=== PATIENT | male | born 1965 | race Caucasian/White ===

== ENCOUNTER 2017-04-13 15:41 | Inpatient (IN) ==
[2017-04-13] MEDS ORDERED: Vancomycin 1,000 MG in D5% in Water 250 ML IVPB ONE ×2 (16:05→20:00)
--- NOTE | 2017-04-13 16:08 | Emergency Department Note ---
Disposition Clinical Impression: Facial cellulitis Disposition: Admitted As Inpatient Condition: Good Time of Disposition: 17:23 Skin/Abscess/FB HPI Chief complaint: ED Skin/Abscess/Foreign Body Stated complaint: Cellulitis to face not improving Time Seen by Provider: 04/13/17 16:00 Source: patient Mode of arrival: ambulatory Limitations: no limitations Nursing Notes Reviewed: Yes Vital Signs Reviewed: Yes HPI Narrative: 51-year-old white male with redness to his face for 5 days. He was seen here 2 days ago and treated for cellulitis with clindamycin and Keflex. He was put on prednisone as well. There was some concern as to whether was a dermatitis versus a facial cellulitis. It is not improving. He felt lightheaded and dizzy this morning. He had a fever when he was here 2 days ago, he states had some low-grade fever since then, not documented. Pt Subjective Complaint: rash Onset (ago): day(s) (5) Location: face Severity: moderate Quality: burning Consistency: constant Improves with: none Worsens with: none Context: other (Seen in the ED 2 days ago for the same) Associated symptoms: Reports: fever, chills Treatments prior to arrival: other (Cephalexin and clindamycin) Home Medications Medication Instructions Recorded Confirmed FLUoxetine HCl [Prozac] 20 mg PO DAILY 05/31/16 04/13/17 Allopurinol [Zyloprim 100 MG] 100 mg PO DAILY 06/01/16 04/13/17 Buprenorphine [Butrans] 1 each TD QWEEK 06/01/16 04/13/17 Dextroamphetamine/Amphetamine 20 mg PO DAILY 06/01/16 04/13/17 [Adderall 20 mg Tablet] Gabapentin [Gralise] 1,200 mg PO TID 06/01/16 04/13/17 Lisinopril [Zestril] 10 mg PO DAILY 06/01/16 04/13/17 Loratadine [Claritin] 10 mg PO DAILY 06/01/16 04/13/17 Methocarbamol [Robaxin] 750 mg PO Q8HR PRN 06/01/16 04/13/17 Oxycodone HCl [Oxycontin] 10 mg PO AD PRN 04/13/17 04/13/17 Previous Rx's Medication Instructions Recorded FLUoxetine HCl [Prozac] 40 mg PO QAM #30 capsule 06/03/16 TraZODone 50 mg PO HS PRN #30 tablet 06/03/16 Clindamycin [Cleocin] 150 mg PO Q6HR #40 capsule 04/11/17 HydrOXYzine Pamoate [Vistaril] 50 mg PO Q4-6H PRN #20 capsule 04/11/17 cephALEXin [Keflex] 1,000 mg PO BID #40 capsule 04/11/17 predniSONE [PredniSONE] 40 mg PO DAILY #10 tablet 04/11/17 Allergies Allergy/AdvReac Type Severity Reaction Status Date / Time Cyclobenzaprine AdvReac See Verified 11/15/16 11:51 [From Flexeril] Comments All systems ED: reviewed and negative except as stated. Constitutional: Reports: fever, chills Cardiovascular: Denies: chest pain Respiratory: Denies: cough, dyspnea Gastrointestinal: Denies: abdominal pain, nausea, vomiting Integumentary: Reports: as per HPI Past Medical History - Past Medical History Medical history: Reports: arthritis, hypertension, other Surgical history: Reports: orthopedic, other (Right shoulder, spinal fusion cervical), other (Gastric bypass) Psychiatric history: Reports: anxiety, ADHD, depression - Social History Smoking Status: Former smoker Smokeless Tobacco Status: No Alcohol use: Reports: none Drug use: Reports: none Physical Exam - General Limitations: no limitations General appearance: alert, in no apparent distress - Head Head exam: atraumatic, normocephalic - Eye Eye exam: Present: PERRL, EOMI, scleral icterus, conjunctival injection - ENT ENT exam: normal oropharynx, mucous membranes dry - Neck Neck exam: Present: normal inspection, full ROM, trachea midline. Absent: lymphadenopathy - Respiratory Respiratory exam: Present: normal lung sounds bilaterally. Absent: respiratory distress, wheezes - Cardiovascular Cardiovascular exam: Present: regular rate, normal rhythm, normal heart sounds - Abdominal Exam Abdominal exam: Present: soft, Non-Tender, normal bowel sounds. Absent: organomegaly, mass - Neurological Exam Neurological exam: Present: alert, oriented X3, normal gait. Absent: motor sensory deficit - Psychiatric Psychiatric exam: Present: normal affect, normal mood - Skin Skin exam: Present: warm, dry, intact, erythema (Erythema of both cheeks extending into the supraorbital regions and into the lower one third of the forehead, well-demarcated especially in the supraorbital regions. Some minimal scaling or dry skin.) Course - Reevaluation(s) Reevaluation #1: Discussed with Dr. Mackenzie. Accepted for observation admission. Time: 17:22 Vital Signs Temperature 98.0 F 04/13/17 15:46 Pulse Rate 65 04/13/17 15:46 Respiratory Rate 18 04/13/17 15:46 Blood Pressure 116/71 04/13/17 15:46 O2 Sat by Pulse Oximetry 100 04/13/17 15:46 Temperature 98.0 F 04/13/17 15:47 Pulse Rate 65 04/13/17 15:47 Respiratory Rate 18 04/13/17 15:47 Blood Pressure 116/71 04/13/17 15:47 O2 Sat by Pulse Oximetry 100 04/13/17 15:47 Oxygen Delivery Oxygen Delivery Room Air Skin/Abscess/Foreign Body - Differential Diagnosis Likely: viral exanthem, urticaria, allergic reaction to drug, cellulitis, eczema , insect bites, impetigo, contact dermatitis - Lab Data Result diagrams: 04/13/17 16:13 04/13/17 16:13 Lab Results 04/13/17 04/13/17 04/13/17 Range/Units 16:13 16:13 16:13 WBC 17.9 H (4.3-11.1) K/mcL RBC 4.33 (4.19-5.50) M/mcL Hgb 13.0 (12.9-16.9) g/dL Hct 36.7 L (37.5-50.1) % MCV 84.8 (83.0-100.0) fL MCH 30.0 (28.0-33.3) pg MCHC 35.4 (31.6-35.5) g/dL RDW 11.9 (11.5-14.5) % Plt Count 300 (140-400) K/mcL MPV 10.5 (9.4-12.4) fL Immature Gran % 0.8 (0-4) % Seg Neutrophils % 92.6 % Lymphocytes % 2.2 % Monocytes % 4.1 % Eosinophils % 0.1 % Basophils % 0.2 % Neutrophils # 16.6 H (1.6-8.9) K/mcL Lymphocytes # 0.4 L (0.6-4.6) K/mcL Monocytes # 0.7 (0.0-1.3) K/mcL Eosinophils # 0.0 (0.0-0.6) K/mcL Basophils # 0.0 (0.0-0.2) K/mcL ESR 46 H (0-15) mm/hr Sodium 130 L (136-145) mEq/L Potassium 4.1 (3.5-4.5) mEq/L Chloride 95 L (98-109) mEq/L Carbon Dioxide 21 (19-29) mEq/L BUN 19 (8-26) mg/dL Creatinine 0.92 (0.72-1.25) mg/dL Est GFR ( Amer) > 60 (> 60) Est GFR (Non-Af Amer) > 60 (> 60) BUN/Creatinine Ratio 21 (6-26) Glucose 181 H (70-99) mg/dL Calculated Osmolality 277 L (280-300) Calcium 9.4 (8.6-10.8) mg/dL Total Bilirubin 0.4 (0.2-1.2) mg/dL AST 15 (5-34) Units/L ALT 14 (0-55) Units/L Alkaline Phosphatase 70 (38-126) Units/L Serum Total Protein 7.6 (6.0-8.3) g/dL Albumin 3.5 (3.5-5.0) g/dL Globulin 4.1 H (2.4-3.5) g/dL Albumin/Globulin Ratio 0.9 L (1.1-2.2)
[2017-04-13 16:19] LABS: Basophils % 0.2 %; Eosinophils % 0.1 %; Hematocrit 36.7 % (37.5-50.1); Immature Granulocytes % 0.8 % (0-4); Lymphocytes # 0.4 K/mcL (0.6-4.6); Lymphocytes % 2.2 %; Mean Corpuscular HGB Conc 35.4 g/dL (31.6-35.5); Mean Corpuscular Volume 84.8 fL (83.0-100.0); Mean Platelet Volume 10.5 fL (9.4-12.4); Monocytes # 0.7 K/mcL (0.0-1.3); Monocytes % 4.1 %; Neutrophils # 16.6 K/mcL (1.6-8.9); Platelet Count 300 K/mcL (140-400); Red Blood Count 4.33 M/mcL (4.19-5.50); Red Cell Distribution Width 11.9 % (11.5-14.5); Segmented Neutrophils % 92.6 %
[2017-04-13] MEDS ORDERED: *HR* OxyCODONE/APAP 5/325 TABLET PO ONE (16:28)
[2017-04-13 16:36] LABS: Alanine Aminotransferase 14 Units/L (0-55); Albumin 3.5 g/dL (3.5-5.0); Albumin/Globulin Ratio 0.9 (1.1-2.2); Alkaline Phosphatase 70 Units/L (38-126); Aspartate Amino Transferase 15 Units/L (5-34); BUN/Creatinine Ratio 21 (6-26); Bilirubin,Total 0.4 mg/dL (0.2-1.2); Blood Urea Nitrogen 19 mg/dL (8-26); Calcium 9.4 mg/dL (8.6-10.8); Carbon Dioxide 21 mEq/L (19-29); Chloride 95 mEq/L (98-109); Globulin 4.1 g/dL (2.4-3.5); Glucose 181 mg/dL (70-99); Osmolality,Calculated 277 (280-300); Potassium 4.1 mEq/L (3.5-4.5); Sodium 130 mEq/L (136-145); Total Protein 7.6 g/dL (6.0-8.3); eGFR For African Americans > 60 (> 60); eGFR For Non-African Americans > 60 (> 60)
[2017-04-13] MEDS ORDERED: traZODone 50 MG TABLET PO PRN (19:06)
[2017-04-13] MEDS ORDERED: Methocarbamol 500 MG TABLET PO PRN (19:06)
[2017-04-13] MEDS ORDERED: Vancomycin (wt based) 1,000 MG VIAL IVPB SCH (19:06)
[2017-04-13] MEDS ORDERED: *HR* OxyCODONE ER (12 HR) 10 MG TABLET PO PRN (19:06)
[2017-04-13] MEDS ORDERED: Naloxone 0.4 MG/ML INJ IVP PRN (19:06)
[2017-04-13] MEDS ORDERED: BUPRENORPHINE TP SCH (19:06)
[2017-04-13] MEDS ORDERED: hydrOXYzine pamoate 25 MG CAPSULE PO PRN (19:06)
[2017-04-13] MEDS: Gabapentin 400 MG CAPSULE PO SCH (21:22)
[2017-04-13] MEDS: *HR* OxyCODONE Immed Rel 5 MG TABLET PO PRN (21:25)
[2017-04-14] MEDS: *HR* OxyCODONE Immed Rel 5 MG TABLET PO PRN ×5 (01:50→20:37)
[2017-04-14] MEDS: *HR* Enoxaparin 40 MG/0.4 ML SYRINGE SQ SCH (05:50)
[2017-04-14] MEDS: Loratadine 10 MG TABLET PO SCH (08:45)
[2017-04-14] MEDS: FLUoxetine 20 MG CAPSULE PO SCH (08:46)
[2017-04-14] MEDS: Gabapentin 400 MG CAPSULE PO SCH ×3 (08:46→20:33)
[2017-04-14] MEDS: Dextroamphetamine/Amphetamine [Adderall 20 Mg Tablet PO SCH (08:46)
[2017-04-14] MEDS ORDERED: FLUoxetine 20 MG CAPSULE PO SCH (09:00)
[2017-04-14] MEDS ORDERED: Vancomycin 2,000 MG in D5% in Water 500 ML IVPB SCH (09:00)
[2017-04-14] MEDS: Vancomycin 1,250 MG in D5% in Water 250 ML IVPB SCH ×2 (09:48→20:34)
--- NOTE | 2017-04-14 12:13 | Internal Med History&Physical ---
Date of Encounter: 04/14/17 Time of Encounter: 11:45 Assessment and Plan (1) Facial cellulitis Current visit: Yes Status: Acute He has been changed from Keflex and clindamycin he was taking as an outpatient to IV vancomycin. I will add oral doxycycline. Recheck labs in a.m. Anticipate discharge home tomorrow if stable. (2) Hyperglycemia Current visit: Yes Status: Acute We will check hemoglobin A1c in a.m. (3) Low serum vitamin B12 Current visit: Yes Status: Acute His B12 level was 160 on 03/26/2015. We will recheck in a.m. Internal Medicine - H&P: HPI Chief complaint: Facial cellulitis Admitted From: Home Plans for Post Hospital Care: Home History of present illness: Mr. Conklin is a 51 year old male who came to emergency room on April 11 complaining of facial redness onset a few hours earlier. He had had greenish mucus coming from his sinuses for 3 days. He he stated he also had cough sore throat and earache. He was given antibiotics and told to follow-up again at the emergency room in 2 days if he was not improved. He did not feel there was significant improvement so came back to emergency room April 13 as directed. He was found to have leukocytosis with left shift. He was admitted to [facility] floor for ongoing care needs. He denies previous similar episodes of facial cellulitis. He states his cough and sore throat have improved. He feels the facial pain and swelling have also improved. Past Med Surg Social Fam HX - Past Medical History Medical history: arthritis, hypertension, other Psychiatric history: anxiety, ADHD, depression - Past Surgical History Surgical History: orthopedic, other, other - Social History Smoking Status: Former smoker Smokeless Tobacco Status: No Alcohol use: none Drug use: none Internal Medicine - H&P: Meds FLUoxetine HCl [Prozac] 20 mg PO DAILY 05/31/16 [History] Allopurinol [Zyloprim 100 MG] 100 mg PO DAILY 06/01/16 [History] Buprenorphine [Butrans] 1 each TD QWEEK 06/01/16 [History] Dextroamphetamine/Amphetamine [Adderall 20 mg Tablet] 20 mg PO DAILY 06/01/16 [ History] Gabapentin [Gralise] 1,200 mg PO TID 06/01/16 [History] Lisinopril [Zestril] 10 mg PO DAILY 06/01/16 [History] Loratadine [Claritin] 10 mg PO DAILY 06/01/16 [History] Methocarbamol [Robaxin] 750 mg PO Q8HR PRN 06/01/16 [History] FLUoxetine HCl [Prozac] 40 mg PO QAM #30 capsule 06/03/16 [Rx] TraZODone 50 mg PO HS PRN #30 tablet 06/03/16 [Rx] Clindamycin [Cleocin] 150 mg PO Q6HR #40 capsule 04/11/17 [Rx] HydrOXYzine Pamoate [Vistaril] 50 mg PO Q4-6H PRN #20 capsule 04/11/17 [Rx] cephALEXin [Keflex] 1,000 mg PO BID #40 capsule 04/11/17 [Rx] predniSONE [PredniSONE] 40 mg PO DAILY #10 tablet 04/11/17 [Rx] Oxycodone HCl [Oxycontin] 10 mg PO AD PRN 04/13/17 [History] Allergies Cyclobenzaprine [From Flexeril] Adverse Reaction (Verified 11/15/16 11:51) See Comments legs jerking All Systems PM: A 10-system review of systems was performed and is negative for pertinent findings except as documented above in the HPI. Review of systems: Gen.: He states his weight is decreased approximately 10 pounds in the past year , intentionally Cardiovascular: He has history of hypertension but denies ME heart failure angina DVT or pulmonary embolism Respiratory: He smoked for approximately 4 years in his 20s. He smoked up to 2 packs per day. He denies chronic lung disease. He been diagnosed with SIMONA and wears CPAP at bedtime which she has done for the last 10 years. He does not use home oxygen. GI: He denies disorders of his liver gallbladder or exocrine pancreas : He denies hematuria dysuria or kidney stones Neurologic: He denies large distribution strokes or seizures Endocrine: He was diagnosed with DM 2 approximately 1996. He had gastric bypass surgery approximately 2 years later and was taken off diabetic medication. He denies hyperlipidemia or thyroid disease Hematology/oncology: Denies blood disorders cancers or anemia Psychiatric: He has anxiety, depression, and ADHD. [place] skeletal: He has chronic back pain and was told he has sciatica. He has diagnosis of gout and DJD. - Constitutional Vitals: Temp Pulse Resp BP Pulse Ox 98.3 F 63 16 107/79 96 04/14/17 10:11 04/14/17 10:11 04/14/17 10:11 04/14/17 10:11 04/14/17 10:12 Exam: Gen.: His well-developed well-nourished male who appears in minimal distress at present time HEENT: Head is atraumatic and normocephalic. He has erythema with scaling of the face involving periorbital area extending down to the mandible bilaterally. Eyes: EOMI. There is no scleral icterus. Mouth: Mucosa is moist. Neck: Supple and nontender. There is no thyromegaly or adenopathy noted. Heart: Regular without murmurs gallops or ectopics. Lungs: No wheezes or crackles heard. Abdomen: Soft and nontender. No masses or guarding are noted. Extremities: There is no cyanosis edema noted. Dorsalis pedis and posttibial pulses 1-2 over 2 bilaterally. Neurologic: Mental status: He is talkative and a good historian. Cranial nerves : Smile is symmetric. Forehead wrinkles bilaterally. Tongue protrudes midline. EOMI. Motor: There is no pronator drift. Cerebellar: Finger to nose is intact bilaterally. Skin: He has facial cellulitis as described above. Otherwise his skin is warm and dry and unremarkable. Internal Med - H&P Results - Labs CBC & Chem 7: 04/13/17 16:13 04/13/17 16:13
[2017-04-14] MEDS: Doxycycline 100 MG CAPSULE PO SCH ×2 (13:46→20:33)
[2017-04-15] MEDS: *HR* Enoxaparin 40 MG/0.4 ML SYRINGE SQ SCH (05:35)
[2017-04-15] MEDS: *HR* OxyCODONE Immed Rel 5 MG TABLET PO PRN ×2 (05:44→10:07)
[2017-04-15 05:51] LABS: Basophils # 0.1 K/mcL (0.0-0.2); Basophils % 1.4 %; Eosinophils # 0.2 K/mcL (0.0-0.6); Eosinophils % 2.7 %; Hematocrit 35.2 % (37.5-50.1); Hemoglobin 12.2 g/dL (12.9-16.9); Immature Granulocytes % 5.2 % (0-4); Lymphocytes % 15.7 %; Mean Corpuscular HGB Conc 34.7 g/dL (31.6-35.5); Mean Corpuscular Hemoglobin 30.7 pg (28.0-33.3); Mean Corpuscular Volume 88.4 fL (83.0-100.0); Mean Platelet Volume 10.4 fL (9.4-12.4); Monocytes # 0.8 K/mcL (0.0-1.3); Monocytes % 12.1 %; Platelet Count 255 K/mcL (140-400); Red Blood Count 3.98 M/mcL (4.19-5.50); Red Cell Distribution Width 12.4 % (11.5-14.5); Segmented Neutrophils % 62.9 %
[2017-04-15 06:32] LABS: Neutrophils # 4.2 K/mcL (1.6-8.9)
[2017-04-15 07:05] LABS: Platelet Estimate Normal (Normal)
[2017-04-15 07:16] VITALS: BP 138/63
[2017-04-15] MEDS: Dextroamphetamine/Amphetamine [Adderall 20 Mg Tablet PO SCH (09:06)
[2017-04-15] MEDS: Loratadine 10 MG TABLET PO SCH (09:07)
[2017-04-15] MEDS: Doxycycline 100 MG CAPSULE PO SCH (09:07)
[2017-04-15] MEDS: FLUoxetine 20 MG CAPSULE PO SCH (09:07)
[2017-04-15] MEDS: Gabapentin 400 MG CAPSULE PO SCH (09:08)
--- NOTE | 2017-04-15 09:47 | Discharge Summary ---
Date of Encounter: 04/15/17 Time of Encounter: 09:35 - Discharge Diagnosis (1) Facial cellulitis Priority: Primary Status: Acute (2) Hyperglycemia Priority: Secondary Status: Acute (3) Low serum vitamin B12 Priority: Secondary Status: Acute - Discharge Medications Prescriptions: Doxycycline 100 mg PO BID #10 capsule Lactobacillus [Culturelle] 1 each PO BID #10 cap.sprink Oxycodone HCl 10 mg PO QID PRN #12 tab PRN Reason: Pain Home Medications: FLUoxetine HCl [Prozac] 20 mg PO DAILY 05/31/16 [History] Allopurinol [Zyloprim 100 MG] 100 mg PO DAILY 06/01/16 [History] Buprenorphine [Butrans] 1 each TD QWEEK 06/01/16 [History] Dextroamphetamine/Amphetamine [Adderall 20 mg Tablet] 20 mg PO DAILY 06/01/16 [ History] Gabapentin [Gralise] 1,200 mg PO TID 06/01/16 [History] Lisinopril [Zestril] 10 mg PO DAILY 06/01/16 [History] Loratadine [Claritin] 10 mg PO DAILY 06/01/16 [History] Methocarbamol [Robaxin] 750 mg PO Q8HR PRN 06/01/16 [History] FLUoxetine HCl [Prozac] 40 mg PO QAM #30 capsule 06/03/16 [Rx] TraZODone 50 mg PO HS PRN #30 tablet 06/03/16 [Rx] HydrOXYzine Pamoate [Vistaril] 50 mg PO Q4-6H PRN #20 capsule 04/11/17 [Rx] Oxycodone HCl [Oxycontin] 10 mg PO AD PRN 04/13/17 [History] Doxycycline 100 mg PO BID #10 capsule 04/15/17 [Rx] Lactobacillus [Culturelle] 1 each PO BID #10 cap.sprink 04/15/17 [Rx] Oxycodone HCl 10 mg PO QID PRN #12 tab 04/15/17 [Rx] Allergies/Adverse Reactions: Allergies Cyclobenzaprine [From Flexeril] Adverse Reaction (Verified 11/15/16 11:51) See Comments legs jerking Date of admission: 04/14/17 12:24 Primary care physician: Aida Hernandez CNP - Patient Status Disposition: Home, Self-Care Condition: Good Functional capacity at discharge: independent ambulation Overall status at discharge: patient is progressing back to baseline - Discharge Instructions Follow Up With: Aida Hernandez, MATTHEW [Primary Care Provider] - 1 week - Diet and Activity Activity: resume usual activities as tolerated Diet: advance to your usual diet Hospital course: Mr. Conklin is a 51 year old male who came to emergency room on April 11 complaining of facial redness onset a few hours earlier. He had had greenish mucus coming from his sinuses for 3 days. He he stated he also had cough sore throat and earache. He was given antibiotics and told to follow-up again at the emergency room in 2 days if he was not improved. He did not feel there was significant improvement so came back to emergency room April 13 as directed. He was found to have leukocytosis with left shift. He was admitted to [facility] for ongoing care needs. Initial orders were written by the emergency room physician. I saw him on April 14 and performed a history and physical. He was started on IV vancomycin in the emergency room for facial cellulitis. I added oral doxycycline. On April 15 there was significant improvement in the erythema. His WBC had normalized to 6.6 with resolution of the left shift. He remained afebrile. I felt he was stable for discharge home to continue with oral doxycycline and lactobacillus for 5 additional days. He will not continue the Keflex, clindamycin or prednisone at discharge. He will follow with his PCP within one week. Hemoglobin A1c and vitamin B12 level were ordered with results pending at time of discharge. - Time Spent with Patient Total time spent providing and/or coordinating discharge services: - Constitutional Vitals: Temp Pulse Resp BP Pulse Ox 97.7 F 79 18 138/63 98 04/15/17 07:13 04/15/17 07:13 04/15/17 07:13 04/15/17 07:13 04/15/17 07:13
[2017-04-15] MEDS: Vancomycin 1,250 MG in D5% in Water 250 ML IVPB SCH (10:05)
[2017-04-15 17:22] LABS: Hemoglobin A1C 5.1 %
[2017-04-19] MEDS ORDERED: BUPRENORPHINE TP SCH (09:00)
== END 2017-04-15 11:54 | disposition home or self-care (01) | DRG 383 ==
LOC: EMEROOPIK 15:41 → INPPIK 15:41
PROVIDERS: ADMIT Internal Medicine; ATTEND Internal Medicine